=== PATIENT | male | born 1945 | race Caucasian/White ===

== ENCOUNTER 2025-07-19 15:52 | Emergency (ER) | payer OTHER, SELFPAY ==
[2025-07-19 15:56] VITALS: BP 140/61
[2025-07-19 16:13] LABS: Hematocrit 44.6 % (39.0-52.0); Hemoglobin 15.4 g/dL (13.0-18.0); Mean Corp Hgb Conc. 34.5 g/dL (33.0-37.0); Mean Corpuscular Volume 91.4 fL (80.0-94.0); Nucleated Red Blood Cells % 0 % (-); Platelet Count 171 10^3/uL (130-400); Red Cell Dist. Width 13.1 % (11.5-14.5)
[2025-07-19 16:28] LABS: ALT (SGPT) 15 U/L (0-50); AST (SGOT) 19 U/L (17-59); Albumin 4.1 g/dl (3.5-5.0); Alkaline Phosphatase 128 U/L (38-126); Blood Urea Nitrogen 21 mg/dl (9-20); Calcium 9.6 mg/dl (8.4-10.2); Carbon Dioxide 25 mmol/L (22-30); Chloride 106 mmol/L (98-107); Glucose 107 mg/dl (70-99); Potassium 3.8 mmol/L (3.5-5.1); Sodium 136 mmol/L (135-145); Total Protein 6.7 g/dl (6.3-8.2); eGFR > 60.00
[2025-07-19 16:40] LABS: Troponin I < 0.012 ng/ml
--- NOTE | 2025-07-19 18:53 | ED.GENMED ---
History of Present Illness
General
Chief Complaint: Weakness
Time Seen by Provider: 07/19/25 18:43
History of Present Illness
History of Present Illness:
80-year-old male presents to the emergency department for evaluation of lightheadedness and shaking chills that began around noon. The episodes are waxing waning and currently he feels well. He denies any other complaints. Denies URI symptoms,
coughing, chest pain, or dysuria. states that he has been urinating frequently today
Review of Systems
Review of Systems
Allergies reviewed?: Yes
All Other Systems: ROS reviewed and negative except as documented in HPI and ROS
Phy Exam
Physical Exam
Physical Exam:
GEN: Well appearing, NAD, WDWN
HEENT: Oral mucosa moist, no scleral icterus
Cardiac: Regular rate and rhythm, no murmurs
Lung: No respiratory distress, no tachypnea, lungs clear to auscultation
MSK: No gross deformity or injuries
Skin: Good color, no pallor or jaundice, no rashes
Neuro: AO x3, moves all extremities freely
Psych: Calm, cooperative
Course
Orders/Labs/Results
Orders:
Orders
07/19/25 16:01
Electrocardiogram (*1) Urgent
Reason for Study: Tachycardia
EKG- Treatment ONCE
07/19/25 16:06
CMP [Comprehensive Metabolic Panel] Urgent
Complete Blood Count/With Diff Urgent
Troponin I Urgent
07/19/25 19:39
COVID-19 Antigen Urgent
Source: Nasal Swab
Urinalysis Reflex To Culture Urgent
Date Specimen was Collected: 07/19/25
Time Specimen was Collected: 19:13
Urine Microscopic Reflex Cult Urgent
Urine Culture Urgent
EMA Source: U
Specimen Description:
Date Specimen was Collected: 07/19/25
Time Specimen was Collected: 19:13
07/19/25 19:58
Bladder Scan- Treatment ONCE
0.9% Sodium Chloride 1000 ml [Nss] 1,000 ml IV BOLUS
Acetaminophen [Tylenol] 650 mg PO NOW STA
CefTRIAXone [Rocephin] 1,000 mg IV NOW STA
07/19/25 20:08
Sterile Water [Sterile Water For Injection] 10 ml .ROUTE .[facility]
07/19/25 20:58
Blood Culture Q30M
EMA Source: Blood/Venous
Specimen Description:
Blood Culture Q30M
EMA Source: Blood/Venous
Specimen Description:
Abnormal Lab Results
07/19/25 07/19/25
16:06 19:39
MCH 31.6 H pg
(27.0-31.0)
Absolute Neuts (auto) 8.8 H 10^3/uL
(1.4-6.5)
Absolute Lymphs (auto) 0.5 L 10^3/uL
(1.2-3.4)
Neutrophils % 90.2 H %
(42.2-75.2)
Lymphocytes % 5.5 L %
(20.5-51.1)
BUN 21 H mg/dl
(9-20)
Glucose 107 H mg/dl
(70-99)
Total Bilirubin 2.6 H mg/dl
(0.2-1.3)
Alkaline Phosphatase 128 H U/L
(38-126)
Urine Ketones 1+ A
(Negative)
Urine Nitrite (Reflex) Positive A
(Negative)
Leukocyte Esterase Rfl 3+ A
(Negative)
Urine WBC (Reflex) 80-90 A /HPF
(0-5)
Urine Bacteria (Reflex) Many A
(Negative)
Urine Albumin (Reflex) 1+ A
(Neg - Trace)
07/19/25 16:06
07/19/25 16:06
Vital Signs
Initial and Last Documented VS:
Initial Vital Signs
Temp Pulse Resp BP Pulse Ox
99.1 F 108 18 140/61 94
07/19/25 15:56 07/19/25 15:56 07/19/25 15:56 07/19/25 15:56 07/19/25 15:56
Last Documented Vital Signs
Temp Pulse Resp BP Pulse Ox
100.4 F H 89 22 114/56 96
07/19/25 19:48 07/19/25 21:00 07/19/25 21:00 07/19/25 21:00 07/19/25 21:00
MDM/Problems Addressed
MDM/Problems Addressed:
Patient's urinalysis is markedly positive for UTI, I am recommending patient be admitted to the hospital for IV antibiotic X and further monitoring however he declines, [place] and does not wish to stay in a [facility].
He does appear clinically well at this time however it is concerning that he has a UTI with fever developing without clear voiding symptoms. He has no flank pain concerning for obstructive uropathy. Will start him on cephalosporins, given dose of
Rocephin in ED
*Pulse Oximetry
SaO2: 94
Oxygen Mode of Delivery: Room air
Patient hypoxic: no
*Critical Care Note
Total Time (30-74mins, 75-104mins- exclusive of procedures): Not Applicable
ED Attending Note
-
Portions of this chart may have been created with voice recognition software.� Occasional wrong word or��sound alike� substitutions may have occurred due to the inherent limitations of voice recognition software.
Discharge Plan
Departure
Patient Disposition: Home (Routine Discharge)
Date of Disposition: 07/19/25
Time of Disposition: 21:10
Patient with high blood pressure during this ER visit?: No
Discharge Problem:
Urinary tract infection
Instructions: Urinary tract infection in adults - ED (DC)
Prescriptions:
New
cefdinir 300 mg capsule
300 mg PO Q12H Qty: 20 0RF
Referrals:
UNKNOWN - PT DOES,NOT KNOW [Family Provider]
Activity Restrictions/Additional Instructions:
Blood culture test result each day for the next 5 days. If these are positive we will advise emergency department evaluation immediately
Please start antibiotics promptly in the morning
Interventions
Interventions:
*Nursing Disposition Last Done: 07/19/25 21:20
ED- Pulmonary Assessment Last Done: 07/19/25 20:39
ED- Neurological Assessment Last Done: 07/19/25 20:39
ED- Cardiac Assessment Last Done: 07/19/25 20:39
Discharge Date and Time
Discharge Date/Time: 07/19/25 21:23
Print Language: GUYANESE
[2025-07-19 19:47] VITALS: BP 115/61
[2025-07-19 19:52] LABS: Urine Character Clear (Clear)
[2025-07-19 19:58] LABS: Urine Red Blood Cell 0-2 /HPF (0-2); Urine White Cell 80-90 /HPF (0-5)
[2025-07-19 20:00] VITALS: BP 109/61
[2025-07-19 20:07] LABS: COVID-19 Antigen Negative (Negative)
[2025-07-19 20:11] VITALS: BMI 25.8
[2025-07-19] MEDS: NSS 1000 IV (20:12)
[2025-07-19] MEDS: ROCEPHIN 1000 MG IV (20:14)
[2025-07-19 21:00] VITALS: BP 114/56
== END 2025-07-19 21:23 | disposition home or self-care (01) ==
LOC: EMR 15:52
PROVIDERS: Physician Assistant; EMERGENCY PHYSICIAN Emergency Medicine
DX: N39.0 Urinary tract infection, site not specified (principal)
CPT/HCPCS: 99283; 96374; 96361; 80053; 81003; 81015; 84484; 85025; 87040; 87077; 87086; 87811; 93005